=== PATIENT | male | born 1975 | race African-American/Black ===

== ENCOUNTER 2016-06-15 16:47 | Emergency (ER) | payer BC ==
[~2016-06-15] VITALS: Ht 167.6 cm; Wt 72.0 kg
[~2016-06-15 16:47] MED LIST: CARAFATE100 MG/ML PO; COLACE100 MG PO; FLEXERIL10 MG PO; METHOCARBAMOL500 MG PO; MIRALAX17 GM PO; MOTRIN600 MG PO; MOTRIN800 MG PO; NAPROSYN500 MG PO; TYLENOL WITH C1 EACH PO; ULTRAM50 MG PO
[2016-06-15] MEDS ORDERED: LEVAQUIN750 MG PO (19:19)
[2016-06-15] MEDS ORDERED: VENTOLIN HFA18 GM IH (19:19)
[2016-06-15] MEDS ORDERED: TESSALON PERLE100 MG PO (19:21)
[2016-06-15 19:42] VITALS: BP 130/71
== END 2016-06-15 19:50 | disposition home or self-care (01) ==
LOC: EME 16:47
DX: J18.9 Pneumonia, unspecified organism (principal)
CPT/HCPCS: 71020; 87502; 99281; 99284

== ENCOUNTER 2016-12-19 09:07 | Emergency (ER) | payer BC ==
[~2016-12-19] VITALS: Ht 167.6 cm; Wt 73.1 kg
[~2016-12-19 09:07] MED LIST changes: +LEVAQUIN750 MG PO; +TESSALON PERLE100 MG PO; +VENTOLIN HFA18 GM IH
[2016-12-19 09:58] LABS: ADD MIUA? NO; BILIRUBIN NEGATIVE; BLOOD NEGATIVE; COLOR YELLOW ((YELLOW)); GLUCOSE (STRIP) NEGATIVE; KETONES NEGATIVE; LEUKOCYTES NEGATIVE; NITRITE NEGATIVE; PROTEIN (STRIP) NEGATIVE; SPECIFIC GRAVITY 1.011 (1.000-1.030); UROBILINOGEN 0.2 MG/DL (0.2-1.0)
[2016-12-19 10:20] LABS: EOSINOPHIL (%) 0.8 % (0-5); EOSINOPHIL COUNT 0.1 K/uL (0-0.3); HEMATOCRIT 42.3 % (38.0-50.0); IMMATURE GRANULOCYTE (%) 0.7 % (0.0-0.7); IMMATURE GRANULOCYTE COUNT 0.1 K/uL; INSTRUMENT ABS NEUTROPHIL CT 5.7 K/uL; LYMPHOCYTE COUNT 1.9 K/uL (1.0-2.8); MCH 27.4 PG (29.0-34.0); MCHC 32.4 G/DL (30.0-36.0); MCV 84.6 FL (86-99); MEAN PLAT.VOLUME 9.8 uM^3 (9.0-12.4); MONOCYTE (%) 11.9 % (3-12); MONOCYTE COUNT 1.1 K/uL (0-0.8); NEUTROPHIL (%) 65.4 % (45-76); NEUTROPHIL COUNT 5.7 K/uL (1.8-6.4); PLATELET COUNT 205 K/uL (156-360); RBC DIS.WIDTH-CV 12.8 % (11.8-14.6); RBC DIS.WIDTH-SD 39.4 % (39-53); WHITE BLOOD COUNT 8.8 K/uL (4.1-10.2)
[2016-12-19 10:31] LABS: CHLORIDE 103 mEq/L (99-109); SODIUM 139 mEq/L (136-147)
[2016-12-19 10:32] LABS: GLUCOSE 94 mg/dL (70-99)
[2016-12-19 10:34] LABS: ANION GAP 12 MEQ/L (2-14)
[2016-12-19 10:36] LABS: GFR ESTIMATE (CALCULATED) > 59 mL/min/
[2016-12-19 10:37] LABS: UREA NITROGEN (BUN) 10 mg/dL (9-23)
[2016-12-19] MEDS ORDERED: FLEXERIL10 MG PO (11:17)
[2016-12-19] MEDS ORDERED: PERCOCET 5/31 TABLET PO (11:17)
[2016-12-19 11:37] VITALS: BP 110/72
== END 2016-12-19 11:38 | disposition home or self-care (01) ==
LOC: EME 09:07
PROVIDERS: Emergency Medicine
DX: S86.911A Strain of unspecified muscle(s) and tendon(s) at lower leg level, right leg, initial encounter (principal); M54.5 Low back pain
CPT/HCPCS: 74176; 80048; 81003; 85025; 99281; 99284; J1885; J7030